=== PATIENT | male | born 1955 | race Caucasian/White ===

== ENCOUNTER 2017-10-29 08:46 | Outpatient (CLI) | payer OTHER ==
--- NOTE | 2017-10-29 09:37 | Diagnostic Imaging Report ---
JUDY ADAM [facility] [address] [facility].[address] [id number] Report Submission Date: Oct 29, 2017 9:05:54 AM CDT Patient Study Name: KELSEY SHELLEY Date: Oct 29, 2017 8:48:25 AM CDT Modality Type: DX Gender: M Description: UPPER EXTREMITY : 53 Institution: [facility] Physician: JUDY ADAM Examination: Plain film left wrist History: LEFT WRIST PAIN AND SWELLING POST FALL 2 DAYS AGO (Hx) Comparison exams: None available Findings: 3 views the left wrist demonstrates articular degenerative changes. No fracture. No dislocation. No soft tissue abnormality. Impression: Degenerative changes. No acute appearing osseous abnormality Electronically signed on Oct 29, 2017 9:05:54 AM CDT by: Aydin RUSSELL
== END 2017-10-29 08:47 ==
LOC: RAD 08:46
PROVIDERS: ATTEND Physician Assistant
DX: M25.532 Pain in left wrist (principal)
CPT/HCPCS: 73110